=== PATIENT | female | born 1955 | race African-American/Black ===

== ENCOUNTER 2019-07-21 17:18 | Emergency (ER) | payer OTHER ==
[~2019-07-21] VITALS: Ht 170.2 cm; Wt 76.0 kg
[2019-07-21 17:22] VITALS: BP 162/102
[2019-07-21] MEDS ORDERED: ACETAMINOPHEN 500MG TABLET PO ONE (18:30)
== END 2019-07-21 19:51 | disposition home or self-care (01) ==
LOC: ER 17:18
DX: S62.307A Unspecified fracture of fifth metacarpal bone, left hand, initial encounter for closed fracture (principal); I10 Essential (primary) hypertension; V43.52XA Car driver injured in collision with other type car in traffic accident, initial encounter; Y93.89 Activity, other specified; Y92.488 Other paved roadways as the place of occurrence of the external cause; Y99.9 Unspecified external cause status
CPT/HCPCS: 29125; 73130; 99283